=== PATIENT | male | born 1990 | race Caucasian/White ===

== ENCOUNTER 2019-09-13 02:08 | Emergency (ER) | payer SELFPAY ==
[2019-09-13] MEDS ORDERED: ONDANSETRON 4 MG TAB.RAPDIS PO ONE (03:52)
[2019-09-13] MEDS ORDERED: PENICILLIN V POTASSIUM 500 MG TABLET PO ONE (03:52)
[2019-09-13] MEDS ORDERED: HYDROCODONE/ACETAMINOPHEN 5-325 MG (6 TAB/ER DISP) PO PRN (03:52)
[2019-09-13] MEDS ORDERED: OXYCODONE-ACETAMINOPHEN 5-325 MG TABLET PO ONE (03:52)
--- NOTE | 2019-09-13 03:58 | ER Document Report ---
HPI - HPI Time Seen by Provider: 09/13/19 03:38 Pain Level: 5 Context: Patient is a 28-year-old male that comes emergency department for chief complaint of dental pain. Pain is in his left lower jaw. He states that he has a sensation of swelling. He states that he has had intermittent pain for weeks but over the past 24 hours the pain has significantly worsened. He states he has known dental fractures and he states she has been putting off seeing the dentist. Patient takes no daily medications, denies any recreational drugs, denies any past medical history. Past Medical History - General Information source: Patient - Social History Smoking Status: Current Every Day Smoker Smoking Education Provided: Yes - <3 min Frequency of alcohol use: Heavy Drug Abuse: None Lives with: Family Family History: Reviewed & Not Pertinent Patient has homicidal ideation: No - Medical History Medical History: Negative Surgical Hx: Negative - Immunizations Immunizations up to date: Yes Hx Diphtheria, Pertussis, Tetanus Vaccination: Yes Vertical Provider Document - CONSTITUTIONAL General Appearance: WD/WN, No Apparent Distress - HEENT HEENT: Atraumatic, Normocephalic, PERRLA. negative: Conjuctival Injection, Pharyngeal Exudate, Pharyngeal Tenderness, Pharyngeal Erythema Mouth Diagram: 1 - Dental caries, there is surrounding erythema and tenderness but no noted i nduration, fluctuance, or other concerning findings. Generally unremarkable exam otherwise - NECK Neck: Normal Inspection - No submandibular swelling. negative: Lymphadenopathy- Left, Lymphadenopathy-Right - RESPIRATORY Respiratory: Breath Sounds Normal, No Respiratory Distress, Rhonchi - CARDIOVASCULAR Cardiovascular: Regular Rate, Regular Rhythm - GI/ABDOMEN Gastrointestinal: Abdomen Soft, Abdomen Non-Tender. negative: Abdomen Tender - BACK Back: Normal Inspection - MUSCULOSKELETAL/EXTREMETIES Musculoskeletal/Extremeties: MAEW, FROM, Non-Tender - NEURO Level of Consciousness: Awake, Alert, Appropriate Motor/Sensory: No Motor Deficit, No Sensory Deficit - DERM Integumentary: Warm, Dry, No Rash Course - Re-evaluation Re-evalutation: Patient has evidence of a dental infection on exam, no noted abscess, no swelling of the face or submandibular swelling. No other concerning findings noted or reported. Patient placed on antibiotics, referred to the dentist, discussed expectations, follow-up, and return precautions. Patient states understanding and agreement. - Vital Signs Vital signs: Temp Pulse Resp BP Pulse Ox 97.9 F 94 18 179/92 H 98 09/13/19 02:19 09/13/19 02:19 09/13/19 02:19 09/13/19 02:09/13/19 02:19 Discharge - Discharge Clinical Impression: Pain, dental, Dental infection Condition: Stable Disposition: HOME, SELF-CARE Additional Instructions: Your evaluation is consistent with a dental infection. Take antibiotics as prescribed, follow-up with the dental referral listed below or this will continue to happen. Return if you worsen including severe worsening pain, increased welling of the face, or any other concerning symptoms. [facility] [address] [place] [address], [id number] [address] Prescriptions: Penicillin V Potassium [Penicillin Vk 500 mg Tablet] 500 mg PO BID #20 tablet Forms: Return to Work
[2019-09-13 04:11] VITALS: BP 143/84
== END 2019-09-13 04:15 | disposition home or self-care (01) ==
LOC: ER 02:08
DX: K04.7 Periapical abscess without sinus (principal); K02.9 Dental caries, unspecified; K08.89 Other specified disorders of teeth and supporting structures; F17.200 Nicotine dependence, unspecified, uncomplicated
CPT/HCPCS: 99282; S0119

== ENCOUNTER 2019-10-09 19:13 | Emergency (ER) | payer SELFPAY ==
[2019-10-09] MEDS ORDERED: CEPHALEXIN 500 MG CAPSULE PO ONE (20:03)
--- NOTE | 2019-10-09 20:09 | ER Document Report ---
ED Medical Screen (RME) - General Chief Complaint: Finger Injury Stated Complaint: LEFT FINGER INJURY Time Seen by Provider: 10/09/19 19:57 Mode of Arrival: Wheelchair Information source: Patient Notes: 28-year-old male presented to ED for inversion injury to the left index finger. He states he hit it with a hatchet about 6 PM. He states he had a tetanus shot about 2 years ago. He states he smokes a pack a day drinks on the weekends no past medical or surgical history. Patient is alert oriented respirations regular nonlabored speaking in full sentences. We will get x-ray at this time. If there is no bony abnormalities will discharge home with prescription for Keflex. - HPI Onset: Just prior to arrival Onset/Duration: Sudden Quality of pain: Throbbing Severity: Moderate Pain Level: 4 Associated Symptoms: Other - Avulsion to the left index fingertip Exacerbated by: Movement Relieved by: Denies Similar symptoms previously: No Recently seen / treated by doctor: No - Related Data Allergies/Adverse Reactions: No Known Allergies Allergy (Unverified 09/13/19 02:15) Past Medical History - General Information source: Patient - Social History Cigarette use (# per day): Yes - ppd Chew tobacco use (# tins/day): Yes Frequency of alcohol use: Occasional Drug Abuse: None Lives with: Family Family history: Reviewed & Not Pertinent - Past Medical History Cardiac Medical History: Reports: Hx Hypertension Pulmonary Medical History: Reports: None EENT Medical History: Reports: None Neurological Medical History: Reports: None Endocrine Medical History: Reports: None Renal/ Medical History: Reports: None Malignancy Medical History: Reports None GI Medical History: Reports: None Musculoskeltal Medical History: Reports Hx Musculoskeletal Trauma Skin Medical History: Reports None Psychiatric Medical History: Reports: None Traumatic Medical History: Reports: Hx Fractures - Tuft fracture Infectious Medical History: Reports: None Surgical Hx: Negative - Immunizations Immunizations up to date: Yes Hx Diphtheria, Pertussis, Tetanus Vaccination: Yes - 2018 Review of Systems - Review of Systems Constitutional: No symptoms reported EENT: No symptoms reported Cardiovascular: No symptoms reported Respiratory: No symptoms reported Gastrointestinal: No symptoms reported Genitourinary: No symptoms reported Male Genitourinary: No symptoms reported Musculoskeletal: Other - Avulsion to the left index finger Skin: Other - Avulsion to the left index finger Hematologic/Lymphatic: No symptoms reported Neurological/Psychological: No symptoms reported Physical Exam - Vital signs Vitals: Temp Pulse Resp BP Pulse Ox 98.4 F 118 H 20 153/105 H 96 10/09/19 19:26 10/09/19 19:26 10/09/19 19:26 10/09/19 19:26 10/09/19 19:26 Interpretation: Hypotensive, Tachycardic - General General appearance: Appears well, Alert - HEENT Head: Normocephalic, Atraumatic Eyes: Normal Pupils: PERRL - Respiratory Respiratory status: No respiratory distress Chest status: Nontender Breath sounds: Normal Chest palpation: Normal - Cardiovascular Rhythm: Regular Heart sounds: Normal auscultation Murmur: No - Abdominal Inspection: Normal Distension: No distension Bowel sounds: Normal Tenderness: Nontender Organomegaly: No organomegaly - Back Back: Normal, Nontender - Extremities General upper extremity: Normal color, Normal ROM, Normal temperature General lower extremity: Normal inspection, Nontender, Normal color, Normal ROM, Normal temperature, Normal weight bearing. No: Venita's sign Hand: Tender, No evidence of human bite, No evidence of FB, Other - Lotion to the tip of the left index finger - Neurological Neuro grossly intact: Yes Cognition: Normal Orientation: AAOx4 Sabrina Coma Scale Eye Opening: Spontaneous [place] Coma Scale Verbal: Oriented Sabrina Coma Scale Motor: Obeys Commands [place] Coma Scale Total: 15 Speech: Normal Motor strength normal: LUE, RUE, LLE, RLE Sensory: Normal - Psychological Associated symptoms: Normal affect, Normal mood - Skin Skin Temperature: Warm Skin Moisture: Dry Skin Color: Normal Course - Re-evaluation Re-evalutation: 10/09/19 22:11 There was a comminuted fracture to the tuft of the left index finger. This is an open fracture as he has a avulsion injury to the end of the finger. Patient has been treated with Keflex discharged home with a EndorphMe dispense pack and a prescription for Keflex. He has had bacitracin Xeroform gauze then gauze then a bulky dressing applied to the finger to protect the finger until he follows up with orthopedics. He has been instructed to elevate ice the finger take his Keflex as ordered uses pain medicine as ordered and follow-up with orthopedics promptly for this open fracture. Patient verbalized understanding and agreement with treatment plan and patient was discharged home. - Vital Signs Vital signs: Temp Pulse Resp BP Pulse Ox 98.4 F 118 H 20 153/105 H 96 10/09/19 19:55 10/09/19 19:26 10/09/19 19:26 10/09/19 19:26 10/09/19 19:26 - Diagnostic Test Radiology reviewed: Image reviewed, Reports reviewed Doctor's Discharge - Discharge Clinical Impression: Open tuft fracture left index finger, Avulsion skin injury left index finger Condition: Stable Disposition: HOME, SELF-CARE Additional Instructions: Avulsion Injury You have an avulsion injury -- a loss of skin which can't be helped by suturing. When large, these injuries can require skin grafting. Smaller defects or shallow avulsions usually heal well with dressings. Keep the dressing clean and dry. If the bandage becomes wet, remove it, blot the area dry, and apply a fresh dressing. Change the dressings every day. Complete healing may take anywhere from 10 days to two months. The healing time depends on the size and depth of the avulsion and on the amount of crushing of underlying tissues. Re-examination by the physician is often necessary. If any signs of infection occur (swelling, redness, increasing tenderness, red streaks, profuse purulent drainage from the avulsion, tender lumps in the armpit or groin above the avulsion, or fever), see your doctor immediately. Open tuft Fracture of the Finger The tip of your finger is broken (beneath the finger nail). This fracture is serious in that it is an open fracture that means there is opening to your skin to the fracture. It is very important that you call orthopedics right away as you can get infection in the bone if you do not follow-up. Elevating and ice packing the finger will help greatly in reducing pain and swelling. Please call the client care specialist tomorrow. These do not remove the dressing until you follow-up with orthopedics if you cannot get in tomorrow please come to the emergency room to have someone re dressed the finger. Please do not get this finger wet at all until you follow- up with orthopedics. Cephalexin The antibiotic you've been prescribed is a member of the cephalosporin class. This type of antibiotic covers a wide variety of infections, including those of the skin, lungs, and urinary tract. It's useful for staph infections. This antibiotic is slightly similar to the penicillin family. In rare cases, a person who is allergic to penicillin will also be allergic to this medication. If you have had a severe allergic reaction to penicillin, and have not taken this antibiotic since that time, notify your doctor. Antibiotics which cover many germs ("broad spectrum" antibiotics) are more likely to cause diarrhea or "yeast" infections. Women prone to vaginal yeast problems may suffer an attack after taking this antibiotic. In infants, oral thrush (white spots "stuck" on the cheek) or yeast diaper rash may result. See your doctor if these problems occur. Call at once if you develop itching, hives, shortness of breath, or lightheadedness. Ice & Elevation Apply ice packs frequently against the painful area. Many different sched ules are recommended, such as "20 minutes on, 20 minutes off" or "one hour ice, two hours rest." If you need to work, you may need to go longer between ice treatments. You should plan to have the area ice packed AT LEAST one-fourth of the time. The ice should be applied over the wrap, tape, or splint, or over a layer of cloth -- not directly against the skin. Some ice bags have a built-in cloth and can be put directly on the skin. Your injured part should be elevated as much as possible over the next 48 hours. Try to keep the injury above the level of the heart. Avoid use of the injured area. Elevation and rest will decrease the swelling. Oral Narcotic Medication You have been given a EndorphMe dispense pack for pain control. This medication is a narcotic. It's best taken with food, as nausea can result if taken on an empty stomach. Don't operate machinery or drive within six hours of taking this medication. Do not combine this medicine with alcohol, or with any medication which can cause sedation (such as cold tablets or sleeping pills) unless you get permission from the physician. Narcotics tend to cause constipation. If possible, drink plenty of fluids and eat a diet high in fiber and fruits. FOLLOW-UP CARE: If you have been referred to a physician for follow-up care, call the physicians office for an appointment as you were instructed or within the next two days. If you experience worsening or a significant change in your symptoms, notify the physician immediately or return to the Emergency Department at any time for re-evaluation. Prescriptions: Cephalexin Monohydrate [Keflex 500 mg Capsule] 500 mg PO Q6H 5 Days #20 capsule Forms: Elevated Blood Pressure, Smoking Cessation Education, Special Work Note, Return to Work Referrals: SAKINA TAMEZ DO [ACTIVE STAFF] - Follow up tomorrow REUBEN SIMMONS PA-C [COMMUNITY BASED STAFF] - Follow up tomorrow
--- NOTE | 2019-10-09 20:57 | RADIOLOGY REPORT (SQ) ---
EXAM DESCRIPTION: X-ray, three views of the left second finger CLINICAL HISTORY: 28 years Male, Avulsion injury left index finger COMPARISON: None. FINDINGS: Soft tissue dressing is in place over the second finger. Alignment is anatomic subtle fracture of the tip of the distal phalanx is noted. This is nondisplaced and mildly comminuted. No radiopaque foreign body in the soft tissues. Bone mineralization is normal. Impression: Mildly comminuted fracture of the tip of the second distal phalanx. This is nondisplaced.
[2019-10-09] MEDS ORDERED: HYDROCODONE/ACETAMINOPHEN 5-325 MG (6 TAB/ER DISP) PO PRN (21:48)
[2019-10-09 22:10] VITALS: BP 156/88
== END 2019-10-09 22:10 | disposition home or self-care (01) ==
LOC: ER 19:13
DX: S62.661B Nondisplaced fracture of distal phalanx of left index finger, initial encounter for open fracture (principal); W27.8XXA Contact with other nonpowered hand tool, initial encounter; Z72.0 Tobacco use; I10 Essential (primary) hypertension
CPT/HCPCS: 99283

== ENCOUNTER 2020-02-14 19:14 | Emergency (ER) | payer SELFPAY ==
[2020-02-14] MEDS ORDERED: KETOROLAC TROMETHAMINE 60 MG/2 ML SDV IM ONE (19:46)
[2020-02-14] MEDS ORDERED: OXYCODONE-ACETAMINOPHEN 5-325 MG TABLET PO ONE (19:46)
[2020-02-14] MEDS ORDERED: METHYLPREDNISOLONE INJ 125 MG/2 ML SDV IM ONE (19:46)
--- NOTE | 2020-02-14 19:46 | ER Document Report ---
HPI - HPI Patient complains to provider of: Low back pain with radiation down leg Time Seen by Provider: 02/14/20 19:37 Notes: 29-year-old male to the emergency department with complaints of low back pain that radiates down the back of his right leg. 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 He states that he had a little bit of pain but then when he tried to go back to work yesterday his pain was significant. He woke this morning and every time he moves he is having difficulty with pain. He denies any bladder or bowel incontinence. He denies any saddle paresthesia. He denies any urinary retention. He does not use IV drugs. He has not had a fever or chills. He states that he has been taking [id number] pain medicine with not a lot of relief at all. He denies any other complaints - ROS Systems Reviewed and Negative: Yes All other systems reviewed and negative - CONSTITUTIONAL Constitutional: DENIES: Fever, Chills - EENT EENT: DENIES: Sore Throat, Ear Pain, Congestion - NEURO Neurology: DENIES: Headache, Weakness - CARDIOVASCULAR Cardiovascular: DENIES: Chest pain - RESPIRATORY Respiratory: DENIES: Trouble Breathing, Coughing - GASTROINTESTINAL Gastrointestinal: DENIES: Abdominal Pain, Nausea, Patient vomiting, Diarrhea Notes: No bowel incontinence - URINARY Notes: No urinary incontinence, no urinary retention - MUSCULOSKELETAL Musculoskeletal: REPORTS: Back Pain. DENIES: Extremity pain Notes: See HPI - DERM Skin Color: Normal Skin Problems: None Past Medical History - General Information source: Patient - Social History Smoking Status: Former Smoker Frequency of alcohol use: None Drug Abuse: None Family History: Reviewed & Not Pertinent - Past Medical History Cardiac Medical History: Reports: Hx Hypertension Musculoskeletal Medical History: Reports Hx Musculoskeletal Trauma Traumatic Medical History: Reports: Hx Fractures - Tuft fracture - Immunizations Immunizations up to date: Yes Hx Diphtheria, Pertussis, Tetanus Vaccination: Yes - 2018 Vertical Provider Document - CONSTITUTIONAL Agree With Documented VS: Yes Exam Limitations: No Limitations General Appearance: WD/WN, Moderate Distress Notes: Moderate pain distress - HEENT HEENT: Atraumatic, Normocephalic, PERRLA - NECK Neck: Normal Inspection, Supple - RESPIRATORY Respiratory: Breath Sounds Normal, No Respiratory Distress. negative: Rales, Rhonchi, Wheezing - CARDIOVASCULAR Cardiovascular: Regular Rate, Regular Rhythm, No Murmur - GI/ABDOMEN Gastrointestinal: Abdomen Soft, Abdomen Non-Tender, No Organomegaly Notes: Positive obesity - BACK Notes: There is tenderness to palpation to the midline lumbar spine. There is no step- off or deformity. There is no tenderness to palpation to the cervical midline spine or the thoracic lumbar spine. There is positive straight leg raise to the right side. Negative straight leg raise to the left side. - MUSCULOSKELETAL/EXTREMETIES Musculoskeletal/Extremeties: JO DUBON - NEURO Level of Consciousness: Awake, Alert, Appropriate Motor/Sensory: No Motor Deficit, No Sensory Deficit - DERM Integumentary: Warm, Dry, No Rash Course - Re-evaluation Re-evalutation: Impression: Disc herniation with nerve root compression this is likely giving hi m his sciatica pain. Will start on a Medrol Dosepak as well as gabapentin. We will also send home with a short amount of Percocet. And muscle relaxant. I have encouraged the patient to follow-up with a wellness specialist without fail. We had a lengthy discussion about how he will need to see definitively a wellness specialist to help manage this. I have encouraged him to return immediately if he has any fevers, inability to urinate, bladder or bowel incontinence, numbness and tingling around his rectum or penis for saddle paresthesia. Patient voices understanding and agrees with the plan. Noted CT reading for disc herniation. - Vital Signs Vital signs: Temp Pulse Resp BP Pulse Ox 98.4 F 106 H 20 159/101 H 95 02/14/20 19:20 02/14/20 19:20 02/14/20 19:20 02/14/20 19:20 02/14/20 19:20 - Laboratory Laboratory results interpreted by me: Lumbar Spine CT 02/14/20 19:46 IMPRESSION: 1. Right L5-S1 disc herniation, with high likelihood for right S1 root compression. Please correlate with clinical symptoms. - Diagnostic Test Radiology reviewed: Image reviewed, Reports reviewed Discharge - Discharge Clinical Impression: Lumbar disc herniation Lumbago with sciatica, right side Qualifiers: Chronicity: acute Back pain laterality: right Qualified Code(s): M54.41 - Lumbago with sciatica, right side Condition: Stable Disposition: HOME, SELF-CARE Instructions: Herniated Disc ([facility]), Sciatica ([facility]) Additional Instructions: Follow-up with a wellness specialist outpatient without fail. Return immediately to the emergency department if any bladder or bowel incontinence, fevers, inability to walk, inability to urinate, numbness and tingling around your rectum or penis. Do not lift anything greater than 10 pounds. You really should not work at the [email or web address] shop until you are cleared by the orthopedist. Follow-up with the wellness specialist in [place]. [facility] [phone] [address] If you have difficulty with follow up, you may call our geek squad manager to aid in helping you. Her Business card is included. Prescriptions: Methylprednisolone [Medrol Dosepack (4 mg/Tab) 21 Tab/Dosepak] 4 mg PO ASDIR PRN #21 tab.ds.[id number] PRN Reason: Gabapentin [Neurontin 100 mg Capsule] 100 mg PO TID #30 capsule Oxycodone HCl/Acetaminophen [Percocet 5-325 mg Tablet] 1 - 2 tab PO Q4H PRN #15 tablet PRN Reason: Methocarbamol [Robaxin 500 mg Tablet] 500 mg PO QID #20 tablet Forms: Special Work Note Referrals: [facility] [Provider Group] - Follow up in 3-5 days [facility] [Provider Group] - Follow up in 3-5 days
--- NOTE | 2020-02-14 20:44 | RADIOLOGY REPORT (SQ) ---
EXAM DESCRIPTION: RadLex: CT LUMBAR SPINE WITHOUT IV CONTRAST CLINICAL HISTORY: 29 years Male; low back pain with radiculopathy; TECHNIQUE: Noncontrast lumbar spine CT with sagittal and coronal reconstructions. All CT scans at this facility use dose modulation, iterative reconstruction, and/or weight based dosing when appropriate to reduce radiation dose to as low as reasonably achievable. COMPARISON: None. FINDINGS: Alignment is anatomic. L5-S1: Right paramedian disc herniation with mild disc bulging. High likelihood for right S1 nerve root compression. No acute prevertebral edema. There is no acute fracture. Vertebral heights are preserved. No epidural hematoma. IMPRESSION: 1. Right L5-S1 disc herniation, with high likelihood for right S1 root compression. Please correlate with clinical symptoms.
[2020-02-14 22:07] VITALS: BP 146/79
== END 2020-02-14 21:55 | disposition home or self-care (01) ==
LOC: ER 19:14
DX: M51.26 Other intervertebral disc displacement, lumbar region (principal); M54.41 Lumbago with sciatica, right side
CPT/HCPCS: 99285; 96374; 96375; 72131; J1885; J2930